=== PATIENT | male | born 1975 | race Caucasian/White ===

== ENCOUNTER 2017-01-06 12:24 | Observation (INO) | payer BC ==
[2017-01-06 12:26] VITALS: BP 133/67; PULSE 122; RESP 18; TEMP 99.9; O2SAT 98
--- NOTE | 2017-01-06 12:41 | PD ---
Physical Exam Time Seen by Provider: 12:39 Narrative 41 y/o male here with epigastric abdominal pain, worse when eating, as well as nausea. Hx of GERD. Vital signs reviewed. Seen at triage desk. Awaiting bed placement. Data Data Last Documented VS Vital Signs Date Time Temp Pulse Resp B/P Pulse Ox O2 Delivery O2 Flow Rate FiO2 01/06/17 12:26 99.9 122 18 133/67 98 MDM Medical Record Reviewed: Yes Supervised Visit with SOHEILA: Dima Majano Jan 06, 2017 12:41
[2017-01-06] MEDS ORDERED: ACETAMINOPHEN 1000 MG/100 ML VIAL IV ONE (16:00)
[2017-01-06] MEDS ORDERED: PIPERACIL-TAZO 3.375 GM PREMIX 50 ML IV ONE (16:30)
--- NOTE | 2017-01-06 16:36 | RADRPT ---
EXAM DATE/TIME: 01/06/2017 16:02 [facility] COMPARISON: No previous studies available for comparison. INDICATIONS : Reflux and dysphagia for years, more severe in past few months, epigastric pain today FLUORO TIME: 0.9 minutes IMAGE COUNT: 18 CONTRAST: 1. Liquid E-Z Paque Barium Sulfate (60% w/v, 41% w.w) MEDICAL HISTORY : None. SURGICAL HISTORY : None. ENCOUNTER: Initial ACUITY: >1 year PAIN SCORE: 6/10 LOCATION: Bilateral esophagus FINDINGS: There are no constricting or obstructing lesions in the esophagus. 3 films of the cervical soft tiss ues are unremarkable. There is no hiatal hernia. CONCLUSION: There is no esophagitis or obstructing lesion. Ricky Dukes MD FACR on January 06, 2017 at 16:31 Board Certified Radiologist. This report was verified electronically.
[2017-01-06 16:52] LABS: AUTOMATED NEUTROPHIL # 10.2 TH/MM3 (1.8-7.7); BASOPHIL % 0.3 % (0.0-2.0); EOSINOPHIL # 0.1 TH/MM3 (0-0.4); EOSINOPHIL % 0.8 % (0.0-4.0); HEMATOCRIT 45.9 % (39.0-51.0); HEMO FLAGS DIFF FINAL; LYMPH % 5.1 % (9.0-44.0); LYMPHOCYTE # 0.6 TH/MM3 (1.0-4.8); MEAN CELL VOLUME 85.4 FL (80.0-100.0); MEAN CORPUSCULAR HEMOGLOBIN 29.3 PG (27.0-34.0); MEAN CORPUSCULAR HGB CONC 34.4 % (32.0-36.0); MONO % 3.1 % (0.0-8.0); NEUT % 90.7 % (16.0-70.0); PLATELET COUNT 245 TH/MM3 (150-450); RED BLOOD COUNT 5.37 MIL/MM3 (4.50-5.90); RED CELL DISTRIBUTION WIDTH 15.1 % (11.6-17.2); WHITE BLOOD COUNT 11.2 TH/MM3 (4.0-11.0)
--- NOTE | 2017-01-06 16:57 | PD ---
HPI Chief Complaint: GI Complaint Time Seen by Provider: 15:35 Travel History International Travel<30 days: No Contact w/Intl Traveler<30days: No Traveled to known affect area: No History of Present Illness HPI This is a 41-year-old male who presents to the emergency department with epigastric abdominal discomfort that's been present all day and has been worsening associated with some loose stools and nausea. He says for 1 year he' s been having intermittent epigastric discomfort and has a hard time swallowing. He says usually feels like food is getting stuck in his upper abdomen and he has to jump up and down her swallow aggressively in order to dislodge it. Sometimes he has trouble swallowing liquids. He does say over the past day he's developed some fever. His symptoms have been constant. His pain was so bad today that he felt he had to leave work. PFSH Past Medical History GERD: Yes Tetanus Vaccination: < 5 Years Past Surgical History Abdominal Surgery: Yes Appendectomy: Yes Social History Alcohol Use: No Tobacco Use: No Substance Use: No Allergies-Medications (Allergen,Severity, Reaction): Coded Allergies: Banana (Verified Allergy, Unknown, 01/06/17) Reported Meds & Prescriptions Reported Meds & Active Scripts Active No Active Prescriptions or Reported Medications Physical Exam Narrative GENERAL:Well appearing, no acute distress SKIN: Focused skin assessment warm and dry. HEAD: Atraumatic. Normocephalic. EYES: Pupils equal and round. No injection or drainage. ENT: Moist mucous membranes NECK: Trachea midline. CARDIOVASCULAR: Regular rate and rhythm. No murmur appreciated. RESPIRATORY: Clear to auscultation. Breath sounds equal bilaterally. GASTROINTESTINAL: Abdomen soft, tender to palpation in the epigastrium with no rebound or guarding. MUSCULOSKELETAL: No obvious deformities. NEUROLOGICAL: Awake and alert. No obvious cranial nerve deficits. Moving all extremities. PSYCHIATRIC: Appropriate mood and affect; insight and judgment normal. Data Data Last Documented VS Vital Signs Date Time Temp Pulse Resp B/P Pulse Ox O2 Delivery O2 Flow Rate FiO2 01/06/17 12:26 99.9 122 18 133/67 98 Orders Complete Blood Count With Diff (01/06/17 15:49) Comprehensive Metabolic Panel (01/06/17 15:49) Barium Swallow (01/06/17 ) Lipase (01/06/17 15:49) ^ Insert Iv (01/06/17 15:49) Acetaminophen Inj (Ofirmev Inj) (01/06/17 16:00) Chest, Single Ap (01/06/17 ) Urinalysis - C+S If Indicated (01/06/17 16:21) Lactic Acid (01/06/17 16:21) Blood Culture (01/06/17 16:23) Piperacil-Tazo 3.375 Gm Premix (Zosyn 3. (01/06/17 16:30) Ct Abd/Pel W/O Iv Contrast (01/06/17 ) Vancomycin Inj (Vancomycin Inj) (01/06/17 17:15) Labs Laboratory Tests Test 01/06/17 16:26 White Blood Count 11.2 TH/MM3 Red Blood Count 5.37 MIL/MM3 Hemoglobin 15.8 GM/DL Hematocrit 45.9 % Mean Corpuscular Volume 85.4 FL Mean Corpuscular Hemoglobin 29.3 PG Mean Corpuscular Hemoglobin 34.4 % Concent Red Cell Distribution Width 15.1 % Platelet Count 245 TH/MM3 Mean Platelet Volume 9.5 FL Neutrophils (%) (Auto) 90.7 % Lymphocytes (%) (Auto) 5.1 % Monocytes (%) (Auto) 3.1 % Eosinophils (%) (Auto) 0.8 % Basophils (%) (Auto) 0.3 % Neutrophils # (Auto) 10.2 TH/MM3 Lymphocytes # (Auto) 0.6 TH/MM3 Monocytes # (Auto) 0.4 TH/MM3 Eosinophils # (Auto) 0.1 TH/MM3 Basophils # (Auto) 0.0 TH/MM3 CBC Comment DIFF FINAL Differential Comment MDM Medical Decision Making Medical Screen Exam Complete: Yes Emergency Medical Condition: Yes Interpretation(s) White blood cell count is 11 90% neutrophils Electrolytes are pending Barium swallow is reassuring Differential Diagnosis Esophageal stricture, esophageal food obstruction, cholecystitis, cholelithiasis , pancreatitis, gastritis, colitis, gastroenteritis Narrative Course This is a 41-year-old male who presents to the emergency department with epigastric abdominal discomfort that has been going on today. He has had some chills and nausea. He has a history of IV drug use. He was placed on a monitor and an IV was established. Given he primarily described dysphagia I performed a barium swallow which was reassuring. He was found to have a low- grade temperature and tachycardia so he was given fluids, vancomycin and Zosyn. Given his history of IV drug use I think he should be admitted. He may just have gastroenteritis but I would be concerned that he is bacteremic or may have endocarditis. Dr. Pham will follow-up on pending labs. Scripts No Active Prescriptions or Reported Meds Bridget Nance MD Jan 06, 2017 16:57
[2017-01-06 17:12] LABS: ALT (GPT) 38 U/L (12-78)
--- NOTE | 2017-01-06 17:13 | RADRPT ---
EXAM DATE/TIME: 01/06/2017 16:56 [facility] COMPARISON: No previous studies available for comparison. INDICATIONS : Epigastric pain with nausea and vomiting. ORAL CONTRAST: No oral contrast ingested. RADIATION DOSE: 14.19 CTDIvol (mGy) MEDICAL HISTORY : None SURGICAL HISTORY : Appendectomy. ENCOUNTER: Initial ACUITY: 2 days PAIN SCALE: 7/10 LOCATION: epigastic TECHNIQUE: Volumetric scanning of the abdomen and pelvis was performed. Using automated exposure control and ad justment of the mA and/or kV according to patient size, radiation dose was kept as low as reasonably achievable to obtain optimal diagnostic quality images. FINDINGS: LOWER LUNGS: The visualized lower lungs are clear. LIVER: Homogeneous density without lesion. There is no dilation of the biliary tree. No calcified gallston es. SPLEEN: Normal size without lesion. PANCREAS: Within normal limits. KIDNEYS: Tiny nonobstructing bilateral renal calculi observed. 3 stones on the left and a single stone on the right. Each measures approximately 2 mm. ADRENAL GLANDS: Within normal limits. VASCULAR: There is no aortic aneurysm. BOWEL/MESENTERY: There is barium within multiple loops of proximal small bowel from a recent barium swallow. This gene rates streak artifact. The stomach, small bowel, and colon demonstrate no acute abnormality. There i s no free intraperitoneal air or fluid. ABDOMINAL WALL: Within normal limits. RETROPERITONEUM: There is no lymphadenopathy. BLADDER: No wall thickening or mass. REPRODUCTIVE: Within normal limits. INGUINAL: There is no lymphadenopathy or hernia. MUSCULOSKELETAL: Within normal limits for patient age. CONCLUSION: 1. Tiny bilateral nonobstructing renal calculi. 2. No acute abnormality. Navid Aguilera Jr., MD on January 06, 2017 at 17:04 Board Certified Radiologist. This report was verified electronically.
[2017-01-06 17:14] LABS: ALKALINE PHOSPHATASE 64 U/L (45-117); TOTAL BILIRUBIN ADULT 0.6 MG/DL (0.2-1.0)
[2017-01-06] MEDS ORDERED: VANCOMYCIN INJ 1,500 MG in SODIUM CHLORID 0.9% 500 ML INJ 500 ML IV ONE (17:15)
[2017-01-06 17:17] VITALS: BP 125/58; PULSE 107; RESP 20; O2SAT 98
[2017-01-06 17:17] LABS: ANION GAP 7 MEQ/L (5-15); AST (GOT) 33 U/L (15-37); BICARBONATE 27.7 MEQ/L (21.0-32.0); BLOOD UREA NITROGEN 14 MG/DL (7-18); CHLORIDE 104 MEQ/L (98-107); GLOMERULAR FILTRATION RATE 75 ML/MIN (>89); POTASSIUM 4.9 MEQ/L (3.5-5.1); SODIUM (NA) 139 MEQ/L (136-145)
--- NOTE | 2017-01-06 17:24 | RADRPT ---
EXAM DATE/TIME: 01/06/2017 16:44 [facility] COMPARISON: No previous studies available for comparison. INDICATIONS : Chest pain and shortness of breath. MEDICAL HISTORY : Venous insufficiency. SURGICAL HISTORY : Appendectomy. ENCOUNTER: Initial ACUITY: 2 days PAIN SCORE: 7/10 LOCATION: Bilateral upper chest FINDINGS: A single view of the chest demonstrates the lungs to be symmetrically aerated without evidence of mas s, infiltrate or effusion. The cardiomediastinal contours are unremarkable. Osseous structures are intact. Barium noted within the stomach from the recent barium swallow. CONCLUSION: Normal examination. Navid Aguilera Jr., MD on January 06, 2017 at 17:21 Board Certified Radiologist. This report was verified electronically.
[2017-01-06] MEDS ORDERED: PANTOPRAZOLE SODIUM 40 MG VIAL IVP ONE (18:15)
[2017-01-06] MEDS ORDERED: ALUMINUM/MAGNESIUM/SIMETH 30 ML CUP PO ONE (18:15)
[2017-01-06] MEDS ORDERED: LIDOCAINE VISCOUS 2% SOLN 15 ML UDC PO ONE (18:15)
--- NOTE | 2017-01-06 18:16 | PD ---
Physical Exam Narrative Patient signed out to me by Dr. Nance to follow up CT and admit. Please see her documentation for complete details. Briefly, patient has history of IVDA, comes in complaining of epigastric pain and chest pain. He has had issues with GERD in the past, but the chest pain is new. He was found to have a temperature of 99.9 in triage and was tachycardic. Data Data Last Documented VS Vital Signs Date Time Temp Pulse Resp B/P Pulse Ox O2 Delivery O2 Flow Rate FiO2 01/06/17 17:17 107 20 125/58 98 01/06/17 12:26 99.9 Orders Complete Blood Count With Diff (01/06/17 15:49) Comprehensive Metabolic Panel (01/06/17 15:49) Barium Swallow (01/06/17 ) Lipase (01/06/17 15:49) ^ Insert Iv (01/06/17 15:49) Acetaminophen Inj (Ofirmev Inj) (01/06/17 16:00) Chest, Single Ap (01/06/17 ) Urinalysis - C+S If Indicated (01/06/17 16:21) Lactic Acid (01/06/17 16:21) Blood Culture (01/06/17 16:23) Piperacil-Tazo 3.375 Gm Premix (Zosyn 3. (01/06/17 16:30) Ct Abd/Pel W/O Iv Contrast (01/06/17 ) Vancomycin Inj (Vancomycin Inj) (01/06/17 17:15) Pantoprazole Inj (Protonix Inj) (01/06/17 18:15) Al-Mag Hy-Si 40-40-4 Mg/Ml Liq (Mag-Al P (01/06/17 18:15) Lidocaine 2% Viscous (Xylocaine 2% Visco (01/06/17 18:15) Admit Order (Ed Use Only) (01/06/17 ) Labs Laboratory Tests Test 01/06/17 01/06/17 16:20 16:26 Lactic Acid Level 1.4 mmol/L White Blood Count 11.2 TH/MM3 Red Blood Count 5.37 MIL/MM3 Hemoglobin 15.8 GM/DL Hematocrit 45.9 % Mean Corpuscular Volume 85.4 FL Mean Corpuscular Hemoglobin 29.3 PG Mean Corpuscular Hemoglobin 34.4 % Concent Red Cell Distribution Width 15.1 % Platelet Count 245 TH/MM3 Mean Platelet Volume 9.5 FL Neutrophils (%) (Auto) 90.7 % Lymphocytes (%) (Auto) 5.1 % Monocytes (%) (Auto) 3.1 % Eosinophils (%) (Auto) 0.8 % Basophils (%) (Auto) 0.3 % Neutrophils # (Auto) 10.2 TH/MM3 Lymphocytes # (Auto) 0.6 TH/MM3 Monocytes # (Auto) 0.4 TH/MM3 Eosinophils # (Auto) 0.1 TH/MM3 Basophils # (Auto) 0.0 TH/MM3 CBC Comment DIFF FINAL Differential Comment Sodium Level 139 MEQ/L Potassium Level 4.9 MEQ/L Chloride Level 104 MEQ/L Carbon Dioxide Level 27.7 MEQ/L Anion Gap 7 MEQ/L Blood Urea Nitrogen 14 MG/DL Creatinine 1.10 MG/DL Estimat Glomerular Filtration 75 ML/MIN Rate Random Glucose 95 MG/DL Calcium Level 8.5 MG/DL Total Bilirubin 0.6 MG/DL Aspartate Amino Transf 33 U/L (AST/SGOT) Alanine Aminotransferase 38 U/L (ALT/SGPT) Alkaline Phosphatase 64 U/L Total Protein 8.1 GM/DL Albumin 3.9 GM/DL Lipase 87 U/L MDM Supervised Visit with SOHEILA: No Narrative Course CT abd/pelvis shows no acute abnormalities. Abdomen is soft and nontender on exam. Blood cultures were sent and he was given antibiotics due to concerned for possible endocarditis. Admitted for further management. Diagnosis Primary Impression: Chest pain Qualified Code: R07.9 - Chest pain, unspecified type Admitting Information Admitting Physician Requests: Observation Scripts No Active Prescriptions or Reported Meds Condition: Stable Luz Pham MD Jan 06, 2017 18:15
[2017-01-06] MEDS ORDERED: SODIUM CHLORIDE 0.9% FLUSH 10 ML FLUSH IV FLUSH PRN (19:15)
[2017-01-06] MEDS ORDERED: MAGNESIUM HYDROXIDE SUSP 30 ML CUP PO PRN (19:15)
[2017-01-06] MEDS ORDERED: NALOXONE HCL 0.4 MG/ML AMP IV PRN (19:15)
[2017-01-06] MEDS ORDERED: ONDANSETRON HCL 4 MG/2 ML VIAL IVP PRN (19:15)
[2017-01-06 20:00] VITALS: BP_SYST 117; BP_SYST 124; BP_DIAS 67; BP_DIAS 74; PULSE 105; PULSE 60; RESP 18; RESP 20; TEMP 98; TEMP 98.9; O2SAT 95; O2SAT 97
[2017-01-06 20:04] LABS: BLOOD, URINE NEG (NEG); COMMENT (UR) CULTURE INDICATED; CULTURE IF INDICATED CULTURE INDICATED; GLUCOSE,URINE NEG (NEG); KETONE, URINE NEG (NEG); MUCUS URINE FEW /lpf (OCC); NITRITE,URINE NEG (NEG); PH, URINE 5.5 (5.0-8.5); URINE COLOR YELLOW (YELLW/STRAW)
[2017-01-06] MEDS: ENOXAPARIN SODIUM 40 MG/0.4 ML SYRINGE SQ SCH (20:42)
[2017-01-06] MEDS: ACETAMINOPHEN 325 MG TAB PO PRN (20:42)
[2017-01-06] MEDS: SODIUM CHLORIDE 0.9% FLUSH 10 ML FLUSH IV FLUSH SCH (20:43)
[2017-01-06] MEDS: SODIUM CHLOR 0.9% 1000 ML INJ 1,000 ML IV SCH (20:43)
[2017-01-06 22:38] VITALS: PULSE 94
--- NOTE | 2017-01-06 22:52 | HHI.HP ---
[facility] Service [facility] Primary Care Physician No Primary Care Physician Admission Diagnosis Chest pain, r/o endocarditis Diagnoses: Chief Complaint: Dsyphagia and odonopagia x 1 year Travel History International Travel<30 Days: No Contact w/Intl Traveler <30 Da: No Traveled to Known Affected Are: No History of Present Illness Written by Sonia Dubon, acting as scribe for Dr. Felix on 01/07/17 at 22: 52. This is a 41-year-old male patient with past medical history which includes GERD since he was in his 20s. Patient reports he has had EGD and evaluation multiple years ago in [place] but no recent workup. Patient also has a history of IV drug abuse has been clean and sober for the past 6 months and is currently living in a detention house. Patient reports for the past year he has had dysesthesia as well as odynophagia. Patient reports that initially it was with both liquids and solids but seems to be getting better and now only happens with solids. Patient reports he feels as though the food gets stuck in his midepigastric area he reports he has to drink liquid for the food to, "go down." Patient reports that when the food is, "stuck," he feels sharp severe pains, these pains are resolved after he drinks liquid. The patient has been on Prilosec OTC for approximately a year the patient reports the past 2-3 months he has also been taking Nexium [id number] as well. Patient has had liquid bowel movements approximally 2 times a day for the past 1 week. Denies black tarry stools or bright red blood per rectum. Patient reports he lives with his parents on the weekends and has not has also had a diarrhea for the past week. Patient has had vague right sided chest pain which she describes as a muscle spasm occasionally over the past 2-3 months. This chest pain describes as mild in sensation lasting for a couple minutes and resolving spontaneously. Patient reports there is no radiation of the chest pain there is no associated shortness of breath nausea or diaphoresis. Chest pain is not exacerbated by exertion and seems to occur at rest. Review of Systems Except as stated in HPI: all other systems reviewed are Neg Past Family Social History Past Medical History GERD and IV drug abuse last used 6 months ago Past Surgical History Appendectomy, abdominal hernia repair, bilateral eye surgery as a child, reconstruction of left hand after trauma. Reported Medications [id number] Prilosec by mouth [id number] Nexium by mouth Allergies: Coded Allergies: Banana (Verified Allergy, Unknown, 01/06/17) Active Ordered Medications Current Medications Medications (Trade) Dose Ordered Sig/Eric Route Start Time Stop Time Status Last Admin (NS 1000 ml Inj) 1,000 ml @ 75 mls/hr [id number] IV 01/06/17 20:00 01/06/17 20:43 (NS Flush) 2 ml UNSCH PRN IV FLUSH 01/06/17 19:15 (NS Flush) 2 ml BID IV FLUSH 01/06/17 21:00 01/06/17 20:43 (Tylenol) 650 mg Q4H PRN PO 01/06/17 19:15 01/06/17 20:42 (Zofran Inj) 4 mg Q6H PRN IVP 01/06/17 19:15 (Lovenox Inj) 40 mg Q24H SQ 01/06/17 20:00 01/06/17 20:42 (Narcan Inj) 0.4 mg UNSCH PRN IV 01/06/17 19:15 (Milk Of Magnesia Liq) 30 ml Q12H PRN PO 01/06/17 19:15 (Protonix Inj) 40 mg Q24H IV PUSH 01/07/17 18:00 Family History Mother and father are both living in their 60s father has past medical history of leukemia and Hodgkin's lymphoma Social History Patient reports he lives in a detention house and stays with with his parents on the weekends Denies EtOH use Denies tobacco use History of IV drug use last used 6 months ago drug of choice was heroin but also injected crystal meth and cocaine Physical Exam Vital Signs Vital Signs Date Time Temp Pulse Resp B/P Pulse Ox O2 Delivery O2 Flow Rate FiO2 01/06/17 20:00 98.9 105 20 117/74 95 01/06/17 17:17 107 20 125/58 98 01/06/17 12:26 99.9 122 18 133/67 98 Physical Exam GENERAL: This is a well-nourished, well-developed patient, in no apparent distress. SKIN: No rashes, ecchymoses or lesions. Cool and dry. HEAD: Atraumatic. Normocephalic. No temporal or scalp tenderness. EYES: Extraocular motions intact. No scleral icterus. No injection or drainage. CARDIOVASCULAR: Regular rate and rhythm without murmurs, gallops, or rubs. RESPIRATORY: Clear to auscultation. Breath sounds equal bilaterally. No wheezes , rales, or rhonchi. GASTROINTESTINAL: Abdomen soft, tender epigastric area, nondistended. No guarding. MUSCULOSKELETAL: Extremities without clubbing, cyanosis, or edema. No joint tenderness, effusion, or edema noted. No calf tenderness. Negative Homans sign bilaterally. NEUROLOGICAL: Awake and alert. No focal deficits appreciated. Motor and sensory grossly within normal limits. Five out of 5 muscle strength in all muscle groups. Normal speech. Laboratory Laboratory Tests Test 01/06/17 01/06/17 01/06/17 16:20 16:26 18:50 Lactic Acid Level 1.4 White Blood Count 11.2 Red Blood Count 5.37 Hemoglobin 15.8 Hematocrit 45.9 Mean Corpuscular Volume 85.4 Mean Corpuscular Hemoglobin 29.3 Mean Corpuscular Hemoglobin 34.4 Concent Red Cell Distribution Width 15.1 Platelet Count 245 Mean Platelet Volume 9.5 Neutrophils (%) (Auto) 90.7 Lymphocytes (%) (Auto) 5.1 Monocytes (%) (Auto) 3.1 Eosinophils (%) (Auto) 0.8 Basophils (%) (Auto) 0.3 Neutrophils # (Auto) 10.2 Lymphocytes # (Auto) 0.6 Monocytes # (Auto) 0.4 Eosinophils # (Auto) 0.1 Basophils # (Auto) 0.0 CBC Comment DIFF FINAL Differential Comment Sodium Level 139 Potassium Level 4.9 Chloride Level 104 Carbon Dioxide Level 27.7 Anion Gap 7 Blood Urea Nitrogen 14 Creatinine 1.10 Estimat Glomerular Filtration 75 Rate Random Glucose 95 Calcium Level 8.5 Total Bilirubin 0.6 Aspartate Amino Transf 33 (AST/SGOT) Alanine Aminotransferase 38 (ALT/SGPT) Alkaline Phosphatase 64 Total Protein 8.1 Albumin 3.9 Lipase 87 Urine Color YELLOW Urine Turbidity CLOUDY Urine pH 5.5 Urine Specific [place] 1.034 Urine Protein TRACE Urine Glucose (UA) NEG Urine Ketones NEG Urine Occult Blood NEG Urine Nitrite NEG Urine Bilirubin NEG Urine Urobilinogen LESS THAN 2.0 Urine Leukocyte Esterase NEG Urine RBC 4 Urine WBC 19 Urine Mucus FEW Microscopic Urinalysis Comment CULTURE INDICATED Date/Time Procedure Status Source Growth 01/06/17 18:50 Urine Culture Received Urine Clean Catch Pending 01/06/17 16:35 Aerobic Blood Culture Received Blood Peripheral Pending 01/06/17 16:35 Anaerobic Blood Culture Received Blood Peripheral Pending Result Diagram: 01/06/17 1626 01/06/17 1626 Imaging Last Impressions Chest X-Ray 01/06/17 0000 Signed Impressions: Service Date/Time: Friday, January 06, 2017 16:44 - CONCLUSION: Normal examination. Navid Aguilera Jr., MD Barium Swallow X-Ray 01/06/17 0000 Signed Impressions: Service Date/Time: Friday, January 06, 2017 16:02 - CONCLUSION: There is no esophagitis or obstructing lesion. Ricky Dukes MD FACR Abdomen/Pelvis CT 01/06/17 0000 Signed Impressions: Service Date/Time: Friday, January 06, 2017 16:56 - CONCLUSION: 1. Tiny bilateral nonobstructing renal calculi. 2. No acute abnormality. Navid Aguilera Jr., MD Assessment and Plan Problem List: (1) Odynophagia ICD Code: R13.10 Status: Acute (2) Dysphagia ICD Code: R13.10 Status: Acute (3) GERD (gastroesophageal reflux disease) ICD Code: K21.9 Status: Acute Assessment and Plan This is a 41-year-old male patient with past medical history which includes GERD since he was in his 20s. Patient reports he has had EGD and evaluation multiple years ago in [place] but no recent workup. Patient also has a history of IV drug abuse has been clean and sober for the past 6 months and is currently living in a detention house. Patient reports for the past year he has had dysesthesia as well as odynophagia x 1 year. Patient reports that initially it was with both liquids and solids but seems to be getting better and now only happens with solids. Patient reports he feels as though the food gets stuck in his midepigastric area he reports he has to drink liquid for the food to, "go down." The patient has been on Prilosec OTC for approximately a year the patient reports the past 2-3 months he has also been taking Nexium [id number]-[id number] as well. Patient has had liquid bowel movements approximally 2 times a day for the past 1 week. Odynophagia Dysphagia Barium swallow reviewed and reveals there is no esophagitis or obstructing lesion Consult gastroenterology Nothing by mouth at this time, consult speech therapy for swallow evaluation IV fluids for hydration GERD- chronic Patient has been on both Prilosec [id number] in addition to Nexium over -the-counter and is now having diarrhea Will hold PPIs at this time continue to monitor patient Question endocarditis Patient was given Zosyn as well as vancomycin and emergency department No further antibiotics at this time Recheck CBC in a.m. Blood cultures 2 obtained and pending Echocardiogram ordered and pending DVT prophylaxis with subcutaneous Lovenox Discussed with ER provider, nursing and patient Sonia Dubon Jan 06, 2017 22:52
[2017-01-06 23:34] VITALS: BP 113/66; PULSE 88; RESP 18; TEMP 97.8; O2SAT 96
[2017-01-07] VITALS (8 sets, daily range): BP systolic 110–125; BP diastolic 68–84; PULSE 81–92; RESP 18; TEMP 97.3–98.6; O2SAT 94–98
[2017-01-07 04:15] LABS: BASOPHIL % 0.4 % (0.0-2.0); EOSINOPHIL # 0.2 TH/MM3 (0-0.4); HEMO FLAGS DIFF FINAL; LYMPH % 18.6 % (9.0-44.0); LYMPHOCYTE # 1.2 TH/MM3 (1.0-4.8); MEAN CELL VOLUME 86.4 FL (80.0-100.0); MEAN CORPUSCULAR HEMOGLOBIN 28.5 PG (27.0-34.0); MEAN CORPUSCULAR HGB CONC 32.9 % (32.0-36.0); MONO % 12.4 % (0.0-8.0); NEUT % 64.6 % (16.0-70.0); PLATELET COUNT 182 TH/MM3 (150-450); RED BLOOD COUNT 4.97 MIL/MM3 (4.50-5.90); WHITE BLOOD COUNT 6.2 TH/MM3 (4.0-11.0)
[2017-01-07] MEDS: ACETAMINOPHEN 325 MG TAB PO PRN (04:55)
[2017-01-07 05:02] LABS: ALKALINE PHOSPHATASE 52 U/L (45-117); ALT (GPT) 27 U/L (12-78); ANION GAP 7 MEQ/L (5-15); AST (GOT) 12 U/L (15-37); BICARBONATE 26.8 MEQ/L (21.0-32.0); BLOOD UREA NITROGEN 10 MG/DL (7-18); CHLORIDE 107 MEQ/L (98-107); GLOMERULAR FILTRATION RATE 102 ML/MIN (>89); POTASSIUM 3.5 MEQ/L (3.5-5.1); SODIUM (NA) 141 MEQ/L (136-145); TOTAL BILIRUBIN ADULT 0.6 MG/DL (0.2-1.0)
[2017-01-07] MEDS: SODIUM CHLORIDE 0.9% FLUSH 10 ML FLUSH IV FLUSH SCH ×2 (08:40→20:28)
--- NOTE | 2017-01-07 09:49 | HHI.PR ---
Subjective Remarks Follow up dysphagia and epigastric pain. Patient states when he eats he feels the food gets stuck in the middle/ lower esophagus and he gets epigastric pain. He does suffer from GERD and last 2-3 months it has gotten worse. He states his chest pain is more of a intermittent muscle spasm pain, denies any radiation or associated sob. States he has no diarrhea today, last episode was yesterday post antibiotics. Denies any nausea or vomiting. Objective Vitals Vital Signs Date Time Temp Pulse Resp B/P Pulse Ox O2 Delivery O2 Flow Rate FiO2 01/07/17 08:06 98.6 83 18 121/77 96 01/07/17 04:59 94 21 01/06/17 23:34 97.8 88 18 113/66 96 01/06/17 22:38 94 01/06/17 20:00 98.9 105 20 117/74 95 01/06/17 17:17 107 20 125/58 98 01/06/17 12:26 99.9 122 18 133/67 98 Result Diagram: 01/07/17 0346 01/07/17 0346 Imaging Last Impressions Chest X-Ray 01/06/17 0000 Signed Impressions: Service Date/Time: Friday, January 06, 2017 16:44 - CONCLUSION: Normal examination. Navid Aguilera Jr., MD Barium Swallow X-Ray 01/06/17 0000 Signed Impressions: Service Date/Time: Friday, January 06, 2017 16:02 - CONCLUSION: There is no esophagitis or obstructing lesion. Ricky Dukes MD FACR Abdomen/Pelvis CT 01/06/17 0000 Signed Impressions: Service Date/Time: Friday, January 06, 2017 16:56 - CONCLUSION: 1. Tiny bilateral nonobstructing renal calculi. 2. No acute abnormality. Navid Aguilera Jr., MD Objective Remarks GENERAL: Well nourished male in NAD SKIN: Warm and dry. HEAD: Atraumatic. Normocephalic. EYES: Pupils equal and round. No scleral icterus. No injection or drainage. ENT: No nasal bleeding or discharge. Mucous membranes pink and moist. NECK: Trachea midline. No JVD. CARDIOVASCULAR: Regular rate and rhythm. No mummers, or gallops. RESPIRATORY: No accessory muscle use. Clear to auscultation. Breath sounds equal bilaterally. GASTROINTESTINAL: Abdomen soft, epigastric tenderness, nondistended. Hepatic and splenic margins not palpable. MUSCULOSKELETAL: Extremities without clubbing, cyanosis, or edema. No obvious deformities. No calf pain. NEUROLOGICAL: Awake and alert. No obvious cranial nerve deficits. Motor grossly within normal limits. Normal speech. PSYCHIATRIC: Appropriate mood and affect; insight and judgment normal. Medications and IVs Current Medications Medications (Trade) Dose Ordered Sig/Eric Route Start Time Stop Time Status Last Admin (NS 1000 ml Inj) 1,000 ml @ 75 mls/hr [id number] IV 01/06/17 20:00 01/07/17 10:17 (NS Flush) 2 ml UNSCH PRN IV FLUSH 01/06/17 19:15 (NS Flush) 2 ml BID IV FLUSH 01/06/17 21:00 01/06/17 20:43 (Tylenol) 650 mg Q4H PRN PO 01/06/17 19:15 01/07/17 04:55 (Zofran Inj) 4 mg Q6H PRN IVP 01/06/17 19:15 (Lovenox Inj) 40 mg Q24H SQ 01/06/17 20:00 01/06/17 20:42 (Narcan Inj) 0.4 mg UNSCH PRN IV 01/06/17 19:15 (Milk Of Magnesia Liq) 30 ml Q12H PRN PO 01/06/17 19:15 (Protonix Inj) 40 mg Q24H IV PUSH 01/07/17 18:00 A/P Problem List: (1) Odynophagia ICD Code: R13.10 Status: Acute (2) Dysphagia ICD Code: R13.10 Status: Acute (3) GERD (gastroesophageal reflux disease) ICD Code: K21.9 Status: Acute Assessment and Plan This is a 41-year-old male patient with past medical history which includes GERD since he was in his 20s. Patient reports he has had EGD and evaluation multiple years ago in [place] but no recent workup. Patient also has a history of IV drug abuse has been clean and sober for the past 6 months and is currently living in a skilled nursing house. Patient reports for the past year he has had dysesthesia as well as odynophagia x 1 year. Patient reports that initially it was with both liquids and solids but seems to be getting better and now only happens with solids. Patient reports he feels as though the food gets stuck in his midepigastric area he reports he has to drink liquid for the food to, "go down." The patient has been on Prilosec OTC for approximately a year the patient reports the past 2-3 months he has also been taking Nexium [id number]-[id number] as well. Patient has had liquid bowel movements approximally 2 times a day for the past 1 week. Odynophagia and Dysphagia, last EGD at age 26 Images: Barium swallow reviewed and reveals there is no esophagitis or obstructing lesion -Consult gastroenterology for recommendations, EGD planned for tomorrow -will make npo at midnight -IV fluids for hydration GERD- chronic -Patient has been on both Prilosec [id number]-[id number] in addition to Nexium [id number] and is now having diarrhea -Will hold PPIs at this time continue to monitor patient Question endocarditis, hx IVDA 6 months ago, patient with intermittent chest muscle spasm pain with no radiation or sob. Troponin .02 -Patient was given Zosyn as well as vancomycin and emergency department -No further antibiotics at this time -Wbc 11.2-->6.2 -Blood cultures 2 obtained and pending -Echocardiogram ordered and pending DVT prophylaxis: Mari Cain Jan 07, 2017 09:49
[2017-01-07] MEDS: SODIUM CHLOR 0.9% 1000 ML INJ 1,000 ML IV SCH ×2 (10:17→21:31)
--- NOTE | 2017-01-07 10:40 | PD.CONS ---
HPI History of Present Illness This is a 41 year old who presented to ER last night with severe abdominal pain , mild nausea. Pain is in epigastric area and he is having dysphagia and odynophagia. He has been having to drink water to get food down. This has been going on for a year and is intermittent. At times he had painful swallowing with liquid but not currently. He had EGD about 15 y ago and says it was normal. He has not formally been diagnosed with GERD but says he has been noticing acid reflux with certain foods in the last year or so. He occasionally regurgitates after eating but used to do it more in his youth. He takes prilosec and it helped for awhile but stopped working. He recently had been having pain so bad that he began taking nexium additionally. he has been having diarrhea for the last week. (Isabella Merrill) PFSH Past Medical History GERD and IV drug abuse last used 6 months ago Past Surgical History Appendectomy, abdominal hernia repair, bilateral eye surgery as a child, reconstruction of left hand after trauma. (Isabella Merrill) Coded Allergies: Banana (Verified Allergy, Unknown, 01/06/17) Family History Mother and father are both living in their 60s father has past medical history of leukemia and Hodgkin's lymphoma Social History Patient reports he lives in a [facility] house and stays with with his parents on the weekends Denies EtOH use Denies tobacco use History of IV drug use last used 6 months ago drug of choice was heroin but also injected crystal meth and cocaine (Isabella Merrill) Review of Systems Constitutional: COMPLAINS OF: Fever (per pt told he had low grade fever yesterday) Eyes: DENIES: Blurred vision Ears, nose, mouth, throat: DENIES: Hearing loss Respiratory: DENIES: Cough, Shortness of breath Cardiovascular: DENIES: Palpitations Gastrointestinal: COMPLAINS OF: Abdominal pain, Diarrhea (in last week), Nausea , DENIES: Black stools, Bloody stools, Vomiting, Swelling of Abdomen, Hematemesis Genitourinary: DENIES: Hematuria Musculoskeletal: DENIES: Muscle aches Integumentary: DENIES: Abnormal pigmentation Neurologic: DENIES: Abnormal gait Psychiatric: DENIES: Confusion (Isabella Merrill) GI Exam Vitals I&O Vital Signs Date Time Temp Pulse Resp B/P Pulse Ox O2 Delivery O2 Flow Rate FiO2 01/07/17 08:06 98.6 83 18 121/77 96 01/07/17 04:59 94 21 01/06/17 23:34 97.8 88 18 113/66 96 01/06/17 22:38 94 01/06/17 20:00 98.9 105 20 117/74 95 01/06/17 17:17 107 20 125/58 98 01/06/17 12:26 99.9 122 18 133/67 98 Imaging Last Impressions Chest X-Ray 01/06/17 0000 Signed Impressions: Service Date/Time: Friday, January 06, 2017 16:44 - CONCLUSION: Normal examination. Navid Aguilera Jr., MD Barium Swallow X-Ray 01/06/17 0000 Signed Impressions: Service Date/Time: Friday, January 06, 2017 16:02 - CONCLUSION: There is no esophagitis or obstructing lesion. Ricky Dukes MD FACR Abdomen/Pelvis CT 01/06/17 0000 Signed Impressions: Service Date/Time: Friday, January 06, 2017 16:56 - CONCLUSION: 1. Tiny bilateral nonobstructing renal calculi. 2. No acute abnormality. Navid Aguilera Jr., MD Laboratory Test 01/06/17 01/06/17 01/06/17 01/07/17 16:20 16:26 18:50 03:46 Lactic Acid Level 1.4 mmol/L White Blood Count 11.2 TH/MM3 6.2 TH/MM3 Red Blood Count 5.37 MIL/MM3 4.97 MIL/MM3 Hemoglobin 15.8 GM/DL 14.2 GM/DL Hematocrit 45.9 % 43.0 % Mean Corpuscular Volume 85.4 FL 86.4 FL Mean Corpuscular Hemoglobin 29.3 PG 28.5 PG Mean Corpuscular Hemoglobin 34.4 % 32.9 % Concent Red Cell Distribution Width 15.1 % 15.0 % Platelet Count 245 TH/MM3 182 TH/MM3 Mean Platelet Volume 9.5 FL 8.7 FL Neutrophils (%) (Auto) 90.7 % 64.6 % Lymphocytes (%) (Auto) 5.1 % 18.6 % Monocytes (%) (Auto) 3.1 % 12.4 % Eosinophils (%) (Auto) 0.8 % 4.0 % Basophils (%) (Auto) 0.3 % 0.4 % Neutrophils # (Auto) 10.2 TH/MM3 4.0 TH/MM3 Lymphocytes # (Auto) 0.6 TH/MM3 1.2 TH/MM3 Monocytes # (Auto) 0.4 TH/MM3 0.8 TH/MM3 Eosinophils # (Auto) 0.1 TH/MM3 0.2 TH/MM3 Basophils # (Auto) 0.0 TH/MM3 0.0 TH/MM3 CBC Comment DIFF FINAL DIFF FINAL Differential Comment Sodium Level 139 MEQ/L 141 MEQ/L Potassium Level 4.9 MEQ/L 3.5 MEQ/L Chloride Level 104 MEQ/L 107 MEQ/L Carbon Dioxide Level 27.7 MEQ/L 26.8 MEQ/L Anion Gap 7 MEQ/L 7 MEQ/L Blood Urea Nitrogen 14 MG/DL 10 MG/DL Creatinine 1.10 MG/DL 0.84 MG/DL Estimat Glomerular Filtration 75 ML/MIN 102 ML/MIN Rate Random Glucose 95 MG/DL 93 MG/DL Calcium Level 8.5 MG/DL 7.5 MG/DL Total Bilirubin 0.6 MG/DL 0.6 MG/DL Aspartate Amino Transf 33 U/L 12 U/L (AST/SGOT) Alanine Aminotransferase 38 U/L 27 U/L (ALT/SGPT) Alkaline Phosphatase 64 U/L 52 U/L Total Protein 8.1 GM/DL 6.6 GM/DL Albumin 3.9 GM/DL 3.2 GM/DL Lipase 87 U/L Urine Color YELLOW Urine Turbidity CLOUDY Urine pH 5.5 Urine Specific [place] 1.034 Urine Protein TRACE mg/dL Urine Glucose (UA) NEG mg/dL Urine Ketones NEG mg/dL Urine Occult Blood NEG Urine Nitrite NEG Urine Bilirubin NEG Urine Urobilinogen LESS THAN 2.0 MG/DL Urine Leukocyte Esterase NEG Urine RBC 4 /hpf Urine WBC 19 /hpf Urine Mucus FEW /lpf Microscopic Urinalysis Comment CULTURE INDICATED Troponin I LESS THAN 0.02 NG/ML Date/Time Procedure Status Source Growth 01/06/17 18:50 Urine Culture Received Urine Clean Catch Pending 01/06/17 16:35 Aerobic Blood Culture Received Blood Peripheral Pending 01/06/17 16:35 Anaerobic Blood Culture Received Blood Peripheral Pending Physical Examination HEENT: EOMI; normocephalic; atraumatic; no jaundice. CHEST: CTA CARDIAC: RRR ABDOMEN: Soft, nondistended, nontender; no hepatosplenomegaly; bowel sounds are present in all four quadrants. EXTREMITIES: No clubbing, cyanosis, or edema. SKIN: Normal; no rash; no jaundice. MANAGER MARKETING COMMUNICATIONS: No focal deficits; alert and oriented times three. (Isabella Merrill) Assessment and Plan Plan ASSESSMENT - odynophagia, dysphagia - poss stricture. pain in epigastric area when swallowing, bolus sensation. hx reflux, painful swallowing for over a year but worse in last week. - diarrhea - in last week. of note has been taking 2 PPIs. That has stopped so we'll see if diarrhea clears up. c diff test pending. PLAN - EGD with possible dilation tomorrow - MELVIN for now - NPO after midnight - obtain consents - await c diff test This pt seen by myself and Dr Cool and this note is written on his behalf (Isabella Merrill) Physician Comments Seen and examined, plan for EGD in AM Further recommendation to follow based on above findings. (Kristi Cool MD ) Isabella Merrill Jan 07, 2017 10:39 Kristi Cool MD Jan 07, 2017 17:15
[2017-01-07 15:18] LABS: C. DIFF EPI 027 PRESUMPTIVE NEGATIVE (NEGATIVE); C. DIFF TOXIN PCR NEGATIVE (NEGATIVE)
[2017-01-07] MEDS ORDERED: PANTOPRAZOLE SODIUM 40 MG VIAL IV PUSH SCH (18:00)
[2017-01-07] MEDS: ENOXAPARIN SODIUM 40 MG/0.4 ML SYRINGE SQ SCH (20:32)
[2017-01-08] VITALS (7 sets, daily range): BP systolic 109–129; BP diastolic 68–85; PULSE 72–104; RESP 18–20; TEMP 96.3–98.7; O2SAT 94–98
[2017-01-08 04:42] LABS: BASOPHIL % 0.6 % (0.0-2.0); EOSINOPHIL # 0.5 TH/MM3 (0-0.4); EOSINOPHIL % 8.9 % (0.0-4.0); HEMATOCRIT 41.8 % (39.0-51.0); HEMO FLAGS DIFF FINAL; LYMPH % 29.8 % (9.0-44.0); LYMPHOCYTE # 1.8 TH/MM3 (1.0-4.8); MEAN CELL VOLUME 86.9 FL (80.0-100.0); MEAN CORPUSCULAR HEMOGLOBIN 28.8 PG (27.0-34.0); MEAN CORPUSCULAR HGB CONC 33.1 % (32.0-36.0); MONO % 11.4 % (0.0-8.0); NEUT % 49.3 % (16.0-70.0); PLATELET COUNT 191 TH/MM3 (150-450); RED BLOOD COUNT 4.81 MIL/MM3 (4.50-5.90); RED CELL DISTRIBUTION WIDTH 14.7 % (11.6-17.2); WHITE BLOOD COUNT 6.1 TH/MM3 (4.0-11.0)
[2017-01-08 05:06] LABS: ALT (GPT) 29 U/L (12-78); ANION GAP 7 MEQ/L (5-15); AST (GOT) 18 U/L (15-37); BICARBONATE 29.8 MEQ/L (21.0-32.0); BLOOD UREA NITROGEN 10 MG/DL (7-18); CHLORIDE 107 MEQ/L (98-107); GLOMERULAR FILTRATION RATE 96 ML/MIN (>89); POTASSIUM 3.7 MEQ/L (3.5-5.1); SODIUM (NA) 144 MEQ/L (136-145)
[2017-01-08 05:08] LABS: ALKALINE PHOSPHATASE 52 U/L (45-117); TOTAL BILIRUBIN ADULT 0.2 MG/DL (0.2-1.0)
[2017-01-08] MEDS: SODIUM CHLORIDE 0.9% FLUSH 10 ML FLUSH IV FLUSH SCH (08:20)
--- NOTE | 2017-01-08 09:04 | HHI.PR ---
Subjective Remarks Follow up epigastric pain. Patient states he is feeling a little better, he was able to tolerated dinner last night. Still needs to use water to get food down. Denies diarrhea, chest pain, sob, fever or chills. EGD is planned for today. Objective Vitals Vital Signs Date Time Temp Pulse Resp B/P Pulse Ox O2 Delivery O2 Flow Rate FiO2 01/08/17 08:04 104 01/08/17 07:20 98.7 72 18 112/74 96 01/08/17 04:44 97.3 75 20 117/74 96 01/08/17 00:36 96.3 79 20 109/68 94 01/07/17 22:43 86 01/07/17 20:20 96 01/07/17 20:03 97.8 86 18 125/84 98 01/07/17 15:56 97.9 92 18 123/70 95 01/07/17 11:33 97.3 81 18 110/68 95 01/07/17 11:00 87 I/O 01/07/17 01/07/17 01/07/17 01/08/17 01/08/17 01/08/17 07:00 15:00 23:00 07:00 15:00 23:00 Intake Total 360 ml Balance 360 ml Intake Oral 360 ml # Voids 4 # Bowel Movements 1 Result Diagram: 01/08/17 0353 01/08/17 0353 Imaging Last Impressions Chest X-Ray 01/06/17 0000 Signed Impressions: Service Date/Time: Friday, January 06, 2017 16:44 - CONCLUSION: Normal examination. Navid Aguilera Jr., MD Barium Swallow X-Ray 01/06/17 0000 Signed Impressions: Service Date/Time: Friday, January 06, 2017 16:02 - CONCLUSION: There is no esophagitis or obstructing lesion. Ricky Dukes MD FACR Abdomen/Pelvis CT 01/06/17 0000 Signed Impressions: Service Date/Time: Friday, January 06, 2017 16:56 - CONCLUSION: 1. Tiny bilateral nonobstructing renal calculi. 2. No acute abnormality. Navid Aguilera Jr., MD Objective Remarks GENERAL: Well nourished male in NAD SKIN: Warm and dry. HEAD: Atraumatic. Normocephalic. EYES: Pupils equal and round. No scleral icterus. No injection or drainage. ENT: No nasal bleeding or discharge. Mucous membranes pink and moist. NECK: Trachea midline. No JVD. CARDIOVASCULAR: Regular rate and rhythm. No mummers, or gallops. RESPIRATORY: No accessory muscle use. Clear to auscultation. Breath sounds equal bilaterally. GASTROINTESTINAL: Abdomen soft, epigastric tenderness, nondistended. Hepatic and splenic margins not palpable. MUSCULOSKELETAL: Extremities without clubbing, cyanosis, or edema. No obvious deformities. No calf pain. NEUROLOGICAL: Awake and alert. No obvious cranial nerve deficits. Motor grossly within normal limits. Normal speech. PSYCHIATRIC: Appropriate mood and affect; insight and judgment normal. Medications and IVs Current Medications Medications (Trade) Dose Ordered Sig/Eric Route Start Time Stop Time Status Last Admin (NS 1000 ml Inj) 1,000 ml @ 75 mls/hr [id number] IV 01/06/17 20:00 01/07/17 21:31 (NS Flush) 2 ml UNSCH PRN IV FLUSH 01/06/17 19:15 (NS Flush) 2 ml BID IV FLUSH 01/06/17 21:00 01/06/17 20:43 (Tylenol) 650 mg Q4H PRN PO 01/06/17 19:15 01/07/17 04:55 (Zofran Inj) 4 mg Q6H PRN IVP 01/06/17 19:15 (Lovenox Inj) 40 mg Q24H SQ 01/06/17 20:00 01/07/17 20:32 (Narcan Inj) 0.4 mg UNSCH PRN IV 01/06/17 19:15 (Milk Of Magnesia Liq) 30 ml Q12H PRN PO 01/06/17 19:15 (Protonix Inj) 40 mg Q24H IV PUSH 01/07/17 18:00 01/07/17 17:24 A/P Problem List: (1) Odynophagia ICD Code: R13.10 Status: Acute (2) Dysphagia ICD Code: R13.10 Status: Acute (3) GERD (gastroesophageal reflux disease) ICD Code: K21.9 Status: Acute Assessment and Plan This is a 41-year-old male patient with past medical history which includes GERD since he was in his 20s. Patient reports he has had EGD and evaluation multiple years ago in [place] but no recent workup. Patient also has a history of IV drug abuse has been clean and sober for the past 6 months and is currently living in a assisted house. Patient reports for the past year he has had dysesthesia as well as odynophagia x 1 year. Patient reports that initially it was with both liquids and solids but seems to be getting better and now only happens with solids. Patient reports he feels as though the food gets stuck in his midepigastric area he reports he has to drink liquid for the food to, "go down." The patient has been on Prilosec OTC for approximately a year the patient reports the past 2-3 months he has also been taking Nexium uhgh-nwz-qroezoh as well. Patient has had liquid bowel movements approximally 2 times a day for the past 1 week. Odynophagia and Dysphagia, last EGD at age 26 Images: Barium swallow reviewed and reveals there is no esophagitis or obstructing lesion -Consult gastroenterology for recommendations, EGD today, esophagitis and hiatal hernia found, recommended PPI, and follow up outpatient -regular diet per gi -IV fluids for hydration GERD- chronic -Patient has been on both Prilosec labp-qtv-hfkajba in addition to Nexium nbsg-ufc-phfhtty and is now having diarrhea -Start Protonix 40mg daily Question endocarditis, hx IVDA 6 months ago, patient with intermittent chest muscle spasm pain with no radiation or sob. Troponin .02 -Patient was given Zosyn as well as vancomycin and emergency department -No further antibiotics at this time -Wbc 11.2-->6.2 -Blood cultures 2, no growth in 1 day -Echocardiogram pending DVT prophylaxis: Lovenox 1408hrs: Discharge patient to home Condition on discharge: Stable Regular Diet as tolerated, avoid acidic foods, caffeine, chocolate, and fatty foods. Ad Gayle activity Rx written:Protonix 40mg daily Follow-up with primary care physician 1 week, GI in 2 weeks Instructed patient on diet and medication changes, and to follow up with GI and his PCP. Echo results pending due to system error, I discussed with patient about calling him at home with the results. Patient agreed and verbalizes understanding. Patient is stable for discharge. Discharge Planning pending egd Mari Warren Jan 08, 2017 09:04
[2017-01-08] MEDS ORDERED: PROPOFOL 200 MG/20 ML AMP IV ONE (09:07)
[2017-01-08] MEDS ORDERED: MIDAZOLAM HCL 2 MG/2 ML VIAL IV ONE (09:07)
--- NOTE | 2017-01-08 09:19 | GIPROC ---
[facility] [address] [facility]. [facility], [address] EGD PROCEDURE REPORT EXAM DATE: 01/08/2017 PATIENT NAME: Maged Neff MR #: [id number] BIRTHDATE: 1975 ATTENDING: Kristi Cool MD ORDER #: [id number] INTERIOR DESIGNER: Calderon Varela and Kathy Adams STATUS: inpatient INDICATIONS: The patient is a 41 yr old male here for an EGD due to chest pain, odynophagia, and dysphagia PROCEDURE PERFORMED: EGD w/ biopsy MEDICATIONS: Per Anesthesia. TOPICAL ANESTHETIC: none CONSENT: The patient understands the risks and benefits of the procedure and understands that these risks include, but are not limited to: sedation, allergic reaction, infection, perforation and/or bleeding. Alternative means of evaluation and treatment include, among others: physical exam, x-rays, and/or surgical intervention. The patient elects to proceed with this endoscopic procedure. medical equipment was checked for proper function. Hand hygiene and appropriate measures for infection prevention was taken. After the risks, benefits and alternatives of the procedure were thoroughly explained, Informed consent was verified, confirmed and timeout was successfully executed by the treatment team. The patient was anesthetized with topical anesthesia and the Pentax [id number] endoscope was introduced through the mouth and advanced to the second portion of the duodenum. Retroflexed views revealed a hiatal hernia The gastroscope was then slowly withdrawn and removed. ESOPHAGUS: There was LA Class B esophagitis noted. The mucosa of the esophagus appeared normal. Multiple biopsies were performed using cold forceps. Sample sent for histology. A diaphragmatic hiatus was present that measured 2 scope diameters. STOMACH: The stomach otherwise appeared normal. DUODENUM: The duodenal mucosa appeared normal in the bulb and second portion of the duodenum. ADVERSE EVENTS: There were no complications. IMPRESSIONS: 1. There was LA Class B esophagitis noted 2. The esophagus appeared normal otherwise; multiple biopsies were performed to role out eosinophilic esophagitis. 3. Diaphragmatic hiatus was present that measured 2 scope diameters 4. The stomach otherwise appeared normal 5. Normal duodenal mucosa in the bulb and second portion of the duodenum 6. Retroflexed views revealed a hiatal hernia RECOMMENDATIONS: 1. Await biopsy results. Biopsy results will not be ready for 7-10 days. If you don't hear from us in two weeks, call our office for biopsy results. 2. Continue PPI PATIENT CONDITION: stable DISPOSITION: Observation REPEAT EXAM: Return as needed for EGD Kristi Cool MD eSigned: Kristi Cool MD 01/08/2017 9:18 AM cc: PATIENT NAME: Maged Neff MR#: [id number]
[2017-01-08] MEDS: SODIUM CHLOR 0.9% 1000 ML INJ 1,000 ML IV SCH (09:57)
[2017-01-08] MEDS ORDERED: PANT40TA3 PO (14:01)
--- NOTE | 2017-01-08 14:02 | HHI.DCPOC ---
Discharge Care Plan Diagnosis: (1) GERD (gastroesophageal reflux disease) (2) Dysphagia (3) Odynophagia Goals to Promote Your Health * To prevent worsening of your condition and complications * To maintain your health at the optimal level Directions to Meet Your Goals Take your medications as prescribed Follow your dietary instruction Follow activity as directed Keep your appointments as scheduled Take your immunizations and boosters as scheduled If your symptoms worsen call your PCP, if no PCP go to Urgent Care Center or Emergency Room Smoking is Dangerous to Your Health. Avoid second hand smoke Call the 24-hour hour crisis hotline for domestic abuse at Mari Warren Jan 08, 2017 14:02
--- NOTE | 2017-01-08 17:50 | ECHRPT ---
Indication: Severe sepsis without septic shock Indication: Severe sepsis without septic shock CONCLUSIONS The left ventricular systolic function is normal with an estimated ejection fraction in the range of 60-65%. There is trace mitral valve regurgitation. No evidence of endocarditis. BP: 121 / 77 HR: 83 Rhythm: Sinus MEASUREMENTS (Male / Female) Normal Values Technical Quality:Good 2D ECHO LV Diastolic Diameter PLAX 4.7 cm 4.2 - 5.9 / 3.9 - 5.3 cm LV Systolic Diameter PLAX 3.7 cm IVS Diastolic Thickness 1.0 cm 0.6 - 1.0 / 0.6 - 0.9 cm LVPW Diastolic Thickness 0.7 cm 0.6 - 1.0 / 0.6 - 0.9 cm LV Relative Wall Thickness 0.4 RV Internal Dim ED PLAX 2.4 cm M-MODE Aortic Root Diameter MM 3.5 cm AV Cusp Separation MM 2.5 cm DOPPLER Mitral E Point Velocity 67.1 cm/s Mitral A Point Velocity 58.2 cm/s Mitral E to A Ratio 1.2 LV E' Lateral Velocity 10.5 cm/s Mitral E to LV E' Lateral Ratio 6.4 LV E' Septal Velocity 7.5 cm/s Mitral E to LV E' Septal Ratio 8.9 TR Peak Velocity 228.0 cm/s TR Peak Gradient 20.8 mmHg FINDINGS Left Ventricle Normal left ventricular size and wall thickness. The left ventricular systolic function is normal wi th an estimated ejection fraction in the range of 60-65%. Left ventricular diastolic function parameters a re normal. Right Ventricle Normal right ventricular size and systolic function. Left Atrium The left atrial size is normal. Right Atrium The right atrial size is normal. Atrial Septum Normal atrial septal thickness without atrial level shunting by limited color doppler interrogation. Aorta The aortic root and proximal ascending aorta are normal in size on limited imaging. Mitral Valve Structurally normal mitral valve. No mitral valve stenosis. There is trace mitral valve regurgitati on. . Aortic Valve Trileaflet aortic valve. No aortic valve stenosis or regurgitation. Tricuspid Valve Structurally normal tricuspid valve. No tricuspid valve stenosis or regurgitation. Pulmonary Valve The pulmonary valve is not well visualized. Vessels The inferior vena cava is normal in size. Pericardium No pericardial effusion. Other Findings No evidence of endocarditis Alejandro Bradford DO (Electronically Signed) Final Date:08 January 2017 17:49
== END 2017-01-08 16:01 | disposition home or self-care (01) ==
LOC: NEPD 12:24 → NEDA 18:16 → NEPFCDU 20:31
PROVIDERS: ADMIT Hospitalist; ATTEND Hospitalist
DX: K21.0 Gastro-esophageal reflux disease with esophagitis (principal); R07.89 Other chest pain; K44.9 Diaphragmatic hernia without obstruction or gangrene; Z91.018 Allergy to other foods
CPT/HCPCS: 43239; 71010; 74176; 74230; 80053; 81001; 83605; 83690; 84484; 85025; 87040; 87086; 87493; 88305; 92610; 93306; 96361; 96365; 96368; 96372; 96375; 96376; 99285; C9113; G0378; G8996; G8997; G8998; J0131; J1650; J2250; J2543; J3370; J7030; J7040